=== PATIENT | female | born 1990 | race Caucasian/White ===

== ENCOUNTER 2019-08-31 19:11 | Emergency (ER) | payer OTHER ==
--- NOTE | 2019-08-31 19:25 | PDOC ---
Rapid Medical Evaluation Time Seen by Provider: 08/31/19 19:15 Medical Evaluation: 08/31/19 19:23 CC: chest pain since 06/15 PE: reproducible upon palpation. Lungs CTAB Orders: EKG, labs Patient will proceed to ER for continued evaluation. 08/31/19 19:24 Discharge Disposition - Diagnosis Chest pain - Referrals - Patient Instructions - Post Discharge Activity
[2019-08-31 19:37] VITALS: TEMP 98.3; BMI 31.7
--- NOTE | 2019-08-31 20:40 | PDOC ---
History of Present Illness - General Chief Complaint: Chest Pain Stated Complaint: CHEST PAINS Time Seen by Provider: 08/31/19 19:15 History Source: Patient Exam Limitations: No Limitations - History of Present Illness Initial Comments: HPI: 29 y/o female presenting to [facility] ER complaining of intermittent right anterior chest wall pain since May 2019. No associated SOB, palpitations, or tachycardia. Pain is worse with direct palpation and sleeping on the right side. No change with movement of R upper extremity. Denies trauma to the area or palpable breast lumps. Pt is s/p bilateral breast implant placement in the [place] in 2017. Denies leakage or skin changes. Pt gave 8 months ago. Stopped 7 months ago. Family Hx: - Denies h/o breast CA Medical Hx: - Reports her blood pressure is always high but she has never been diagnosed with HTN and does not take medication. Surgical Hx: - Cholecystectomy 2009 - Abdominoplasty 2013 - Lipoplasty 2016 - Bilateral breast lift and implant placement [address] Review of Systems: In addition to that documented in the HPI above, the additional ROS was obtained : Constitutional- Denies fevers or chills Head- Denies vision changes ENMT- Denies sore throat CV- Per HPI Resp- Denies SOB GI- Denies vomiting or diarrhea - Denies painful urination MSK- Denies recent trauma Skin- Denies new rashes Neuro- Denies new numbness or tingling or weakness Endocrine- Denies polyuria Heme- Denies bleeding or bruising Physical Examination: Constitutional- Well-developed, well-nourished female in no acute distress or obvious discomfort. Obese body habitus. Found semi-fowlers on hospital bed. Observed ambulating unassisted through the department without difficulty. Answered all questions appropriately and completely. Head- Normocephalic. No obvious external signs of trauma. Neck- Supple, trachea is midline. Cardiovascular / Chest- Regular rate and regular rhythm. No murmur, rubs, clicks , or gallops. Peripheral pulses- radial pulses full. Point tenderness to right anterior chest wall in the mid clivicular line in the top one third. Hard, nonmobile, bony mass. No overlying skin changes. Respiratory- Breathing unlabored. Equal chest rise and fall. Clear to auscultation bilaterally. No stridor, no wheezing, no rhonchi. Female Breast: Symmetrical pendulous breasts with identical lay. No masses, tenderness, asymmetry, nipple discharge, or axillary lymphadenopathy. Surgical scars to lower, outer edge of both breasts. ED Scribe chaperoned exam. Neuro- Alert and oriented x4. Moving all four extremities spontaneously. Skin- Warm, dry, and intact. Psych- Affect- appropriate. Mood- normal. Speech was non-labored, non- pressured. MDM: *Reviewed vital signs, nursing notes, and prior visit documentation (if available). 29 y/o female presenting with reproducible right-sided anterior chest wall pain for approx. 3 months. Afebrile. Vitals unremarkable for hypotension or tachycardia. Physical exam as described above. CXR unremarkable for acute cardiopulmonary findings or acute bony fracture or dislocation. EKG unremarkable for ischemic findings. Troponin not elevated. Suspect likely MSK etiology given extremely reproducible nature of discomfort. Pt noted to be hypertensive at multiple times during the ED course. No evidence of end organ damage. Low suspicion for relevance to acute complaint. Will encourage pt to f/u w/ PCP for further workup. Explained importance of blood pressure control. Discussed labs and xrays results with pt . Answered all questions. Provided return precautions. Pt expressed verbal understanding and agreement with plan to discharge home with outpatient follow up. Provided copies of todays results. Encouraged close f/u w/ [facility] PCP for further evaluation of pain and hypertension. Win Oleary M.D., PGY2 Emergency Medicine Resident Past History - Past Medical History Home Medications: Ambulatory Orders NK [No Known Home Medication] 08/31/19 COPD: No Other medical history: pre-eclampsia - Psycho Social/Smoking Cessation Hx Smoking History: Never smoked Have you smoked in the past 12 months: No Information on smoking cessation initiated: No Hx Alcohol Use: Yes (social) Drug/Substance Use Hx: No *Physical Exam - Vital Signs Last Vital Signs Temp Pulse Resp BP Pulse Ox 98.3 F 86 17 163/92 100 08/31/19 19:23 08/31/19 19:23 08/31/19 19:23 08/31/19 19:23 08/31/19 19:23 Vital Signs - Vital Signs #1 Blood Pressure: 150/101 (@19:35) MAP: 117 BP Location: Right Arm Blood Pressure Position: Sitting ED Treatment Course - LABORATORY CBC & Chemistry Diagram: 08/31/19 20:29 08/31/19 20:29 - RADIOLOGY Radiology Studies Ordered: Category Date Time Status RIBS RIGHT SIDE [RAD] Stat Radiology 08/31/19 20:14 Ordered Discharge - Discharge Information Problems reviewed: Yes Clinical Impression/Diagnosis: Right-sided chest wall pain Hypertension Qualifiers: Hypertension type: unspecified Qualified Code(s): I10 - Essential (primary) hypertension Condition: Good Disposition: HOME - Admission No - Follow up/Referral - Patient Discharge Instructions Patient Printed Discharge Instructions: DI for High Blood Pressure, DI for Atypical Chest Pain Additional Instructions: You were seen today for right sided chest pain for the past several months. Your chest xray, lab tests, and EKG were normal. The pain is likely a muscular pain. Try to rest the right side of your chest by not lifting heavy items on that side. You can take over the counter Tylenol or Advil as needed for pain. Take as directed on the package insert. Do not exceed the recommended dosage. Your blood pressure was elevated today in the emergency department. This is not likely to be the cause of your symptoms. However, you should discuss your blood pressure with your primary care doctor. It may be time to start medication. Weight loss and regular exercise are also excellent ways to lower your blood pressure. Follow up with your primary care doctor within the next week. You will need to call to make an appointment. A copy of todays results are attached to this packet. Take it to the appointment so your doctor can review them. Go to the nearest emergency department if your condition worsens or you feel like you need additional emergency evaluation. Print Language: [id number] - Post Discharge Activity
[2019-08-31 20:45] LABS: BASO % 0.6 % (0-2.0); EOS % 1.6 % (0-4.5); HEMATOCRIT 37.7 % (32.4-45.2); HEMOGLOBIN 11.9 GM/dL (10.7-15.3); LYMPH % 33.7 % (8-40); MCH 26.8 pg (25.7-33.7); MCHC 31.5 g/dl (32.0-36.0); MEAN CELL VOLUME 85.1 fl (80-96); MEAN PLT VOLUME 9.1 fl (7.5-11.1); MONO % 9.9 % (3.8-10.2); NEUT % 54.2 % (42.8-82.8); PLATELET COUNT 277 K/MM3 (134-434); RBC 4.43 M/mm3 (3.60-5.2); RDW 19.2 % (11.6-15.6); WHITE BLOOD COUNT 6.3 K/mm3 (4.0-10.0)
[2019-08-31 20:48] LABS: EPI CELLS 3.5 /HPF (0-5/HPF); HYALINE CASTS 2 /lpf (0-8); URINE APPEARANCE CLEAR; URINE BILIRUBIN NEGATIVE (NEGATIVE); URINE COLOR YELLOW; URINE GLUCOSE (UA) NEGATIVE (NEGATIVE); URINE KETONE NEGATIVE (NEGATIVE); URINE LEUK ESTERASE TRACE (NEGATIVE); URINE NITRITE NEGATIVE (NEGATIVE); URINE PROTEIN NEGATIVE (NEGATIVE); URINE RBC 0 /hpf (0-4); URINE UROBILINOGEN 0.2 mg/dL (0.2-1.0); URINE WBC 2 /hpf (0-5)
--- NOTE | 2019-08-31 20:49 | PDOC ---
Attending Attestation - Resident Resident Name: Win Oleary - ED Attending Attestation I have performed the following: I have examined & evaluated the patient, The case was reviewed & discussed with the resident, I agree w/resident's findings & plan, Exceptions are as noted - HPI HPI: 08/31/19 20:47 this 29 yo female has c/o of right chest anterior chest pain fir 3 months - Physicial Exam PE: 08/31/19 20:49 wnwd 29 yo female presents in no acute distress,resting on the gurney hed ncat neck supple lungs cta b/l [facility] [id number] abdomen soft,nontender Under her clavicle she has c/o rt anterior rib tenderness to palpation skin warm and dry,no abscess neuro axox3,ambulatory - Medical Decision Making 08/31/19 20:57 Negative test The area where she feels pain to palpation does not show any vesicles, abscess, erythema or swelling Chest x-ray PA and lateral is does not show any acute pulmonary disease, no appreciable masses or nodules, no pneumothorax, no infiltrates normal mediastinum 08/31/19 20:58 EKG is normal sinus rhythm with no signs of ischemia negative troponin Patient does not have any constitutional symptoms. She denies shortness of breath or nausea or vomiting or fever or chills or cough 08/31/19 20:58 She has had cosmetic surgery several years ago including breast augmentation 08/31/19 21:48 labs are unremarkable plan DC home imp atypical chest pain
[2019-08-31 21:06] VITALS: PULSE 66
[2019-08-31 21:13] LABS: ALBUMIN 3.6 g/dl (3.4-5.0); BILIRUBIN,TOTAL 0.6 mg/dL (0.2-1); BLOOD UREA NITROGEN 13.6 mg/dL (7-18); CALCIUM 8.3 mg/dL (8.5-10.1); CREATININE 0.7 mg/dL (0.55-1.3); POTASSIUM 3.7 mmol/L (3.5-5.1); TOT PROT 7.1 g/dl (6.4-8.2)
[2019-08-31 21:47] VITALS: BP 150/101
--- NOTE | 2019-09-01 11:27 | EKG ---
Test Reason : Blood Pressure : / mmHG Vent. Rate : 071 BPM Atrial Rate : 071 BPM P-R Int : 146 ms QRS Dur : 086 ms QT Int : 408 ms P-R-T Axes : 024 012 -13 degrees QTc Int : 443 ms NORMAL SINUS RHYTHM NORMAL ECG NO PREVIOUS ECGS AVAILABLE Confirmed by Derek Nichole MD ([id number]) on 09/01/2019 11:26:16 AM Referred By: Confirmed By:Derek Nichole MD
== END 2019-08-31 21:53 | disposition home or self-care (01) ==
LOC: JER 19:11
DX: R07.89 Other chest pain (principal); I10 Essential (primary) hypertension; Z90.49 Acquired absence of other specified parts of digestive tract; Z98.82 Breast implant status; Z98.890 Other specified postprocedural states
CPT/HCPCS: 36415; 71046-TC-FY; 71101-TC-RT-FY; 80053; 81003; 82550; 82553; 83735; 84484; 84703; 85025; 93005; 93010; 99283-25